=== PATIENT | female | born 1995 | race Two or more races ===

== ENCOUNTER 2017-01-22 22:41 | Emergency (ER) | payer MEDICAID ==
[2017-01-23 00:12] VITALS: BP 143/91
== END 2017-01-23 00:12 | disposition home or self-care (01) ==
LOC: ED 22:41
DX: S96.812A Strain of other specified muscles and tendons at ankle and foot level, left foot, initial encounter (principal); R03.0 Elevated blood-pressure reading, without diagnosis of hypertension; Z88.8 Allergy status to other drugs, medicaments and biological substances; X37.1XXA Tornado, initial encounter; Y93.89 Activity, other specified; Y92.89 Other specified places as the place of occurrence of the external cause; Y99.8 Other external cause status; J45.909 Unspecified asthma, uncomplicated

== ENCOUNTER 2017-02-11 13:41 | Emergency (ER) | payer MEDICAID ==
[2017-02-11 13:55] VITALS: BP 159/99
== END 2017-02-11 15:32 | disposition home or self-care (01) ==
LOC: ED 13:41
DX: H92.02 Otalgia, left ear (principal); J45.909 Unspecified asthma, uncomplicated

== ENCOUNTER 2017-04-20 10:07 | Emergency (ER) | payer MEDICAID ==
[~2017-04-20] VITALS: Ht 162.6 cm; Wt 100.2 kg
[2017-04-20 10:11] VITALS: BP 127/74
== END 2017-04-20 12:04 | disposition home or self-care (01) ==
LOC: ED 10:07
DX: G89.29 Other chronic pain (principal); M25.572 Pain in left ankle and joints of left foot; J45.909 Unspecified asthma, uncomplicated; G47.00 Insomnia, unspecified

== ENCOUNTER 2018-12-24 10:26 | Emergency (ER) | payer OTHER ==
[~2018-12-24] VITALS: Ht 157.5 cm; Wt 119.3 kg
[2018-12-24 10:35] VITALS: Ht 157.5 cm; Wt 119.3 kg
[2018-12-24 12:07] VITALS: BP 133/95
== END 2018-12-24 12:08 | disposition home or self-care (01) ==
LOC: ED 10:26
DX: R51 Headache (principal); N39.0 Urinary tract infection, site not specified; J45.909 Unspecified asthma, uncomplicated; Z98.890 Other specified postprocedural states; Z88.8 Allergy status to other drugs, medicaments and biological substances
CPT/HCPCS: J1885

== ENCOUNTER 2019-01-08 21:33 | Emergency (ER) | payer OTHER ==
[~2019-01-08] VITALS: Ht 157.5 cm; Wt 119.3 kg
[2019-01-08 21:50] VITALS: Ht 157.5 cm; Wt 119.3 kg
[2019-01-09 00:32] VITALS: BP 143/99
== END 2019-01-09 00:32 | disposition home or self-care (01) ==
LOC: ED 21:33
DX: J02.9 Acute pharyngitis, unspecified (principal); J45.909 Unspecified asthma, uncomplicated; Z88.8 Allergy status to other drugs, medicaments and biological substances
CPT/HCPCS: J7512

== ENCOUNTER 2019-11-03 09:22 | Emergency (ER) | payer OTHER ==
[~2019-11-03] VITALS: Ht 157.5 cm; Wt 123.4 kg
[2019-11-03 09:37] VITALS: Ht 157.5 cm; Wt 123.4 kg
[2019-11-03 12:36] LABS: BASOPHIL % 0.4 % (0-2); PLATELET COUNT 194 x10^3mcL (130-400); RED CELL DISTRIBUTION WIDTH 13.5 % (11.5-14.5)
[2019-11-03 12:52] LABS: CALCIUM 8.7 mg/dL (8.5-10.1); CARBON DIOXIDE 30.7 mmol/L (21-32); CHLORIDE SERUM 106 mmol/L (98-107); CREATININE SERUM 0.7 mg/dL (0.6-1.0); GFR1 > 60 mL/min; GLUCOSE SERUM 87 mg/dL (74-106); SODIUM SERUM 139 mmol/L (136-145)
[2019-11-03 12:57] LABS: ALBUMIN 3.4 g/dL (3.4-5.0); ALKALINE PHOSPHATASE 58 U/L (46-116); ALT/SGPT 42 U/L (14-59); AST/SGOT 20 U/L (15-37); BILIRUBIN TOTAL 0.33 mg/dL (0.20-1.00); LIPASE 97 IU/L (73-393); TOTAL PROTEIN, SERUM 7.6 g/dL (6.4-8.2)
[2019-11-03 13:43] VITALS: BP 123/81
== END 2019-11-03 13:43 | disposition home or self-care (01) ==
LOC: ED 09:22
PROVIDERS: Emergency Medicine
DX: K29.70 Gastritis, unspecified, without bleeding (principal); R51 Headache; E66.01 Morbid (severe) obesity due to excess calories; J45.909 Unspecified asthma, uncomplicated; Z88.8 Allergy status to other drugs, medicaments and biological substances
CPT/HCPCS: J2765; J7030